=== PATIENT | male | born 1995 | race Caucasian/White ===

== ENCOUNTER 2017-07-08 18:32 | Emergency (ER) | payer OTHER ==
[~2017-07-08] VITALS: Ht 177.8 cm; Wt 84.1 kg
[2017-07-08 18:34] VITALS: TEMP 36.5; Ht 177.8 cm; Wt 84.1 kg
[2017-07-08] MEDS ORDERED: AZITHROMYCIN 250 MG TAB PO ONE (18:45)
[2017-07-08] MEDS ORDERED: AZITTAB PO (18:48)
--- NOTE | 2017-07-08 18:48 | EMERGENCY ROOM VISIT NOTE ---
History Report prepared by Conchita: Sebastián Zaman Under the Supervision of: Dr. Wilfredo Miller M.D. First contact with patient: 18:37 Chief Complaint: DIZZY Stated Complaint: DIZZY,CONGESTION,NAUSEA,HEADACHE History of Present Illness The patient is a 22 year old male who presents to the Emergency Room with complaints of worsening dizziness for the past five days. The patient states that he also has pressure in his face, headache, vision blurriness, runny nose, post-nasal drip, and a productive cough. The patient denies any fever, ear pain , abdominal pain, chest pain, recent trauma, and numbness. He states that he is feeling weak all over. The patient states that he drank some alcohol the past couple of days, though he states that he is keeping up with his fluids. The patient states that he has taken allergy medications recently, though they did not help. Source of History: patient Onset: five days ago Position: other (global) Quality: other (dizziness) Timing: worsening Associated Symptoms: + headache, + cough, + weakness, No fevers, No chest pain, No abdominal pain, No numbness Note: Associated symptoms: vision blurriness, runny nose, post-nasal drip Review of Systems See HPI for pertinent positives & negatives. A total of 10 systems reviewed and were otherwise negative. Past Medical & Surgical Medical Problems: (1) Seasonal allergies Old medical records were attempted to be reviewed but there are no old records at this hospital. Nurse's notes were reviewed and I agree with. Social History Smoking Status: Never Smoker Marital Status: single Housing Status: lives with roommate Occupation Status: [employer] student Current/Historical Medications Scheduled Azithromycin (Zithromax Z-Av), 0 PO UD Allergies Coded Allergies: No Known Allergies (Unverified , 07/08/17) Physical Exam Vital Signs Date Time Temp Pulse Resp B/P (MAP) Pulse Ox O2 Delivery O2 Flow Rate FiO2 07/08/17 18:34 36.5 63 18 150/85 97 Room Air Physical Exam General: Non-ill appearing young male in no acute distress. HEENT: Mild tenderness with tapping of the sinuses. Normal TMs. Normal cephalic atraumatic. Pupils are equal round and reactive to light. Extraocular movements are intact. Oropharynx is pink with moist mucous membranes. No swelling of the mouth lips or tongue. Neck: Supple with a midline trachea. No meningeal signs or stiffness, no JVD or bruits. No Stridor. Chest: Clear to auscultation bilaterally. No wheezes or rhonchi. No increased work of breathing. Heart: regular rate and rhythm. Abdomen: Soft nontender, nondistended without rebound guarding or rigidity. Extremities: No cyanosis clubbing or edema. No calf tenderness or assymetry Spine/Back. Non tender to palpation. No CVA tenderness Skin: Good turgor without rashes. Neurologic exam: Cranial nerves two through 12 are intact. Motor and sensation are intact and symmetrical throughout. Finger to nose intact. [place] coma scale of 15 Medical Decision & Procedures Medications Administered Medications (Trade) Dose Ordered Sig/Vee Route Start Time Stop Time Status Last Admin Dose Admin Azithromycin (Zithromax Tab) 500 mg NOW ONCE PO 07/08/17 18:45 07/08/17 18:47 DC 07/08/17 18:54 500 MG ED Course 183: Past medical records reviewed. The patient was evaluated in room C8, and a complete history and physical examination were performed. 184: Zithromax Tab 500mg PO 1850: I discussed the results and treatment plan with him. He verbalized agreement of the treatment plan. The patient was discharged home. Medical Decision Differentials include, but are not limited to; sinusitis, dehydration, trauma, intracranial process. This patient comes in after complaining of URI-type symptoms with nasal congestion and mild cough and mild headache as well as feeling dizzy when he walks. He has a normal neurologic exam. He had a lot of sinus congestion tenderness. He does have a history of allergies and just started taking Zyrtec again. I do believe this is related to his sinuses. There is nothing discussed meningitis or encephalitis. He's had no trauma. He will be started on azithromycin Z-Av. He was given a dose here as well as a prescription. I encouraged related to taking Zyrtec. He can also use a decongestant such as Sudafed. He should return if: Worsening of symptoms, fever or chills, not tolerating fluids, any new problems concerns. I recommended that he follow up with the student health clinic in a couple days for recheck if not better. He can return here at any point if symptoms worsen as well. He is happy the plan discharge home. Head Trauma GCS Score: 15 Impression Primary Impression: Sinusitis Additional Impression: Dizziness Scribe Attestation The scribe's documentation has been prepared under my direction and personally reviewed by me in its entirety. I confirm that the note above accurately reflects all work, treatment, procedures, and medical decision making performed by me. Departure Information Dispostion Home / Self-Care Prescriptions Azithromycin (ZITHROMAX Z-AV) 250 Mg Tab 0 PO UD, #1 PKT Prov: Wilfredo Miller M.D. 07/08/17 Referrals No Doctor, Assigned (PCP) Forms HOME CARE DOCUMENTATION FORM, IMPORTANT VISIT INFORMATION Patient Instructions My [facility] Additional Instructions Rest. Drink plenty of fluids. Use your Zyrtec. Use an gyab-crd-ejgvpeu decongestant such as Sudafed.. You can buy it at the pharmacy behind the counter. Use azithromycin Z-Av as directed. Antibiotic Return if: Worsening of symptoms, fever or chills, any new problems or concerns. Problem Qualifiers
[2017-07-08 18:58] VITALS: BP 150/85; PULSE 63; O2SAT 97
== END 2017-07-08 18:55 | disposition home or self-care (01) ==
LOC: C.EDB 18:34 → C.EDC 18:55
DX: J32.9 Chronic sinusitis, unspecified (principal); R42 Dizziness and giddiness

== ENCOUNTER 2017-07-18 13:44 | Emergency (ER) | payer OTHER ==
[~2017-07-18] VITALS: Ht 177.8 cm; Wt 84.2 kg
[~2017-07-18 13:44] MED LIST: AZITTAB PO
[2017-07-18 13:48] VITALS: TEMP 36.4; Ht 177.8 cm; Wt 84.2 kg
[2017-07-18] MEDS ORDERED: CETI10TA84 PO (14:09)
[2017-07-18] MEDS ORDERED: SODIUM CHLORIDE 0.9% 500ML 500 ML IV ONE (14:15)
[2017-07-18] MEDS ORDERED: PROMETHAZINE HCL 25 MG TAB PO ONE (14:15)
--- NOTE | 2017-07-18 14:26 | EMERGENCY ROOM VISIT NOTE ---
History First contact with patient: 13:48 Chief Complaint: DIZZY Stated Complaint: DIZZY, NUMBNESS, BOYD, FACIAL PRESSURE Nursing Triage Summary: triage note; pt ambulatory to triage. pt reports dizziness x 2 weeks. pt reports generalized weakness and fatigue. pt reports "my team jt ren thinks i might have an ear infection, i was on amoxicillan for a week." History of Present Illness The patient is a 22 year old male who presents to the Emergency Room with complaints of dizziness. Symptoms started 2 weeks ago. Preceding the onset of dizziness he was complaining of URI symptoms including nasal congestion and drainage that this is starting to resolve, though still present. At this time he complains of nearly constant sense of feeling "dizzy" and states that he feels the room spinning and feels off balance. He thinks that the dizziness might be worse when he turns his head to the left. He has not had any falls as a result of this fortunately. He denies any hearing loss, or tinnitus. Denies ear pain or discharge. He does note some nasal congestion without drainage. He has not had a sore throat, coughing, wheezing or shortness of breath. He denies having fevers. His appetite is slightly reduced but he denies having any nausea and is able to keep down fluids by mouth. He saw his PCP 2 weeks ago who treated him for otitis media with course of amoxicillin. Patient states mild improvement initially the symptoms returned after cessation of antibiotics. He returned to see PCP yesterday who started him on a course when necessary meclizine. Patient takes meclizine may be helping slightly. In addition he states slight numbness and tingling intermittently in both hands. He denies any focal weakness. He denies difficulty with swallowing or speech. 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 He denies any recent injuries or concussions. Review of Systems See HPI for pertinent positives & negatives. A total of 10 systems reviewed and were otherwise negative. Past Medical/Surgical History Medical Problems: (1) Seasonal allergies Social History Smoking Status: Never Smoker Smokeless Tobacco Use: No Alcohol Use: occasionally Drug Use: none Marital Status: single Housing Status: lives with roommate Occupation Status: [employer] Current/Historical Medications Scheduled Cetirizine (Zyrtec), 10 MG PO DAILY Prednisone (Prednisone), 1 TAB PO DAILY Allergies NKA Physical Exam Vital Signs Date Time Temp Pulse Resp B/P (MAP) Pulse Ox O2 Delivery O2 Flow Rate FiO2 07/18/17 16:26 83 18 109/62 99 07/18/17 13:48 36.4 73 18 118/74 97 Room Air Pain Rating (0-10): 0 Physical Exam Constitutional: Vital signs as above were reviewed. Eyes: Pupils equal, round, and reactive to light. Extraocular muscles are intact. No proptosis. No photophobia. No nystagmus ENT: Mucous membranes are moist. Oropharynx is clear. No sinus tenderness. Serous and panic effusions bilaterally; no discharge in the outer ear canal; no ear pain; no mastoid pain Cardiovascular: Heart with a regular rate and rhythm. Pulses are palpable and symmetric in all 4 extremities. No pedal edema appreciated. Respiratory: Lungs clear to auscultation bilaterally. No wheezes, rales, or rhonchi appreciated. No accessory muscle use. No retractions. No increased work of breathing. GI: Abdomen soft, nontender, nondistended. Normal active bowel sounds. No abdominal hernias appreciated. No rebound. No guarding. : No CVA tenderness appreciated. Musculoskeletal: No midline cervical or vertebral tenderness. No gross deformities. No bony tenderness. No calf swelling or tenderness. Integumentary: Warm, dry, no rashes appreciated. Neurological: Patient awake, alert, and oriented x 3. Cranial nerves two through 12 grossly intact. Gopal-Hallpike testing was negative Normal Finger Nose Testing bilaterally Lymph: No cervical lymphadenopathy appreciated. Medical Decision & Procedures Laboratory Results 07/18/17 14:25 07/18/17 14:25 Test 07/18/17 14:25 Red Blood Count 5.21 M/uL (4.7-6.1) Mean Corpuscular Volume 88.3 fL (80-100) Mean Corpuscular Hemoglobin 29.8 pg (25-34) Mean Corpuscular Hemoglobin Concent 33.7 g/dl (32-36) RDW Standard Deviation 40.3 fL (36.4-46.3) RDW Coefficient of Variation 12.7 % (11.5-14.5) Mean Platelet Volume 10.0 fL (7.4-10.4) Anion Gap 4.0 mmol/L (3-11) Est Creatinine Clear Calc Drug Dose 110.6 ml/min Estimated GFR () 111.4 Estimated GFR (Non- 96.1 BUN/Creatinine Ratio 17.4 (10-20) Calcium Level 9.0 mg/dl (8.5-10.1) Lyme Disease IgG Antibody NEG (NEG) Lyme Disease IgM Antibody NEG (NEG) Medications Administered Medications (Trade) Dose Ordered Sig/Vee Route Start Time Stop Time Status Last Admin Dose Admin Promethazine HCl (Phenergan Tab) 25 mg NOW ONCE PO 07/18/17 14:15 07/18/17 14:19 DC 07/18/17 14:55 25 MG Sodium Chloride 500 ml @ 999 mls/hr Q31M ONCE IV 07/18/17 14:15 07/18/17 14:45 DC 07/18/17 14:53 999 MLS/HR Prednisone (PredniSONE TAB) 50 mg NOW STAT PO 07/18/17 15:50 07/18/17 15:51 DC 07/18/17 16:23 50 MG ED Course 13:50 - Seen and evaluated by Dr. Edis Guy [address] 14:15 - Labs ordered; Discussed case with Dr. Vicente Choudhury, ER attending physician 500 ml NSS; 25 mg PO Phenergan 15:10 - labs are reviewed 16:00 - 50 mg PO prednisone given in ER 16:30 - Lyme screen was negative She was advised of normal lab results and negative Lyme screen. Discussed with the patient starting a empiric course of prednisone for total of 5 days and continuing meclizine when necessary, to which he is agreeable. The patient's discharge was completed Medical Decision The patient presents with 2 weeks of dizziness. This is on a background of a preceding URI, likely viral sinusitis. The differential for vertigo includes station tube dysfunction, Mnire's disease, vestibular neuritis, benign positional paroxysmal vertigo, electrolyte abnormality, dehydration, or acoustic neuroma. Based on my [place]-Hallpike exam, the patient does not have BPPV. Review of labs was grossly negative for evidence of infection or electrolytes abnormality. The patient did not have features of tinnitus or hearing loss that may suggest M nire's. Given the background of sinusitis, it is most likely that chronic inflammation of the posterior nares has blocked at eustachian tube causing symptoms of dizziness. He was just started on meclizine yesterday for which he has had a mild response. Given the duration of symptoms I think it's appropriate at this time to try him on a short course of steroids to give him symptomatic relief. There is no indication at this time to treat him with additional antibiotics. The patient was hemodynamic stable throughout his hospital course, and was relating steadily. As such we felt he could be discharged home safely back to the care of his primary care provider. The patient was instructed to start prednisone tomorrow, to try a nasal steroid , to follow up with his primary care provider in 3-5 days to ensure that he continues to improve. The patient was discharged in stable condition. Head Trauma GCS Score: 15 Medication Reconcilliation Current Medication List: was personally reviewed by me Blood Pressure Screening Patient's blood pressure: Normal blood pressure Impression Primary Impression: Eustachian tube dysfunction Departure Information Dispostion Home / Self-Care Condition GOOD Prescriptions Prednisone (Prednisone) 50 Mg Tab 1 TAB PO DAILY for 4 Days, #4 TAB Prov: Edis Guy MD 07/18/17 Referrals No Doctor, Assigned (PCP) Patient Instructions My [facility] Additional Instructions You have ongoing dizziness for the past 2 weeks. Your primary care provider noted that you have a condition called eustachian tube dysfunction, a diagnosis which I agree with based on your exam in the emergency room. We did check labs which are fortunately normal. Eustachian tube dysfunction should improve over time. You do not need antibiotics for this. Because your symptoms are bothersome, we will give you a short course of steroids (Prednisone), and the first dose will be given today in the emergency room. Please continue taking Prednisone daily, with breakfast once a day for the next 4 days. In addition, you'll need to continue taking meclizine as needed for episodes of dizziness. You can also buy a nasal steroid [id number] such as Flonase or Nasacort to reduce nasal inflammation and help open up the passage between the back of the nose and the ears. Please also ensure that you remain well hydrated, as dehydration and increase dizziness symptoms. If your symptoms fail to improve, acutely worsen, please seek medical attention immediately by either calling your primary care provider or going to your nearest emergency department. Otherwise, please see your primary care provider within 1 week to ensure that your symptoms continue to improve. It was a pleasure to be involved in your care and we wish you all the best.
[2017-07-18 14:36] LABS: MEAN CELL VOLUME 88.3 fL (80-100); MEAN CORPUSCULAR HEMOGLOBIN 29.8 pg (25-34); MEAN CORPUSCULAR HGB CONC 33.7 g/dl (32-36); PLATELET COUNT 227 K/uL (130-400); RED BLOOD COUNT 5.21 M/uL (4.7-6.1); WHITE BLOOD COUNT 7.11 K/uL (4.8-10.8)
[2017-07-18 14:54] LABS: BUN/CREATININE RATIO 17.4 (10-20); CREATININE 1.1 mg/dl (0.60-1.40)
--- NOTE | 2017-07-18 15:08 | EMERGENCY ROOM VISIT NOTE ---
ED Visit Note First contact with patient: 13:48 The patient was seen and examined with Dr. Edis Guy. I agree with the history, physical and findings. Please see the note for disposition and details.
[2017-07-18] MEDS ORDERED: PRED50TA PO (15:48)
[2017-07-18 15:55] LABS: LYME DISEASE AB IGG NEG (NEG); LYME DISEASE AB IGM NEG (NEG)
[2017-07-18 16:26] VITALS: BP 109/62; PULSE 83; O2SAT 99
== END 2017-07-18 16:28 | disposition home or self-care (01) ==
LOC: C.EDB 13:45 → C.EDC 16:28
DX: H69.90 Unspecified Eustachian tube disorder, unspecified ear (principal)